=== PATIENT | female | born 1955 | race Caucasian/White ===

== ENCOUNTER → 2023-12-04 11:58 | Outpatient (CLI) | payer MEDICARE, OTHER, SELFPAY ==
[2023-12-04 12:56] LABS: Add Manual Diff / Slide Review NO; Basophils Absolute Auto 0 /uL (0-100); Basophils Percent Auto 0.7 % (0-2); Eosinophils Absolute Auto 900 /uL (0-450); Eosinophils Percent Auto 17.7 % (2-4); Hematocrit 36.5 % (36-46); Hemoglobin 12.2 g/dL (12.0-16.0); Lymphocytes Absolute Auto 1700 /uL (1100-4500); Lymphocytes Percent Auto 34.5 % (25-40); Mean Corpuscular HGB Conc 33.5 % (30-36); Mean Corpuscular Hemoglobin 29.1 PG (26-34); Monocytes Absolute Auto 400 /uL (0-900); Monocytes Percent Auto 7.9 % (3-14); Neutrophils Absolute Auto 1900 /uL (1500-7000); Neutrophils Percent Auto 39.2 % (50-75); Platelet Count 314 X10^3/uL (150-400); Red Cell Distribution Width 14.5 % (11.6-14.8); White Blood Cell Count 4.9 X10^3/uL (4.5-11.0)
[2023-12-04 13:27] LABS: Erythrocyte Sedimentation Rate 7 MM/HR (0-20)
[2023-12-04 20:32] LABS: Alanine Aminotransferase 23 IU/L (<35); Albumin 4.3 g/dL (3.5-5.0); Albumin Globulin Ratio 1.7 (1.0-2.8); Alkaline Phosphatase 50 U/L (38-126); Aspartate Aminotransferase 37 IU/L (14-36); BUN Creatinine Ratio 25.4 (6-22); Bilirubin Total 0.6 mg/dL (0.2-1.3); Blood Urea Nitrogen 16 mg/dL (7-17); C-Reactive Protein Quant < 0.5 mg/dL (<1.0); Calcium 8.8 mg/dL (8.4-10.2); Carbon Dioxide 24 mmol/L (22-32); Chloride 108 mmol/L (98-107); Estimated Glomerular Filt Rate > 60 mL/min (>60); Globulin 2.5 g/dL (1.7-4.1); Glucose 84 mg/dL (80-110); HEMOLYSIS < 15 (0-50); Potassium 3.9 mmol/L (3.4-5.1); Sodium 136 mmol/L (137-145); Total Protein 6.8 g/dL (6.3-8.2)
[2023-12-04 20:34] LABS: Rheumatoid Factor < 8.6 IU/mL (<12.0)
[2023-12-11 21:50] LABS: 1,25-Dihydroxy, Vitamin D-2 <10 pg/mL (.)
== END ==
PROVIDERS: Family Provider Specialist; PCP Family Medicine; Referring Provider Family Medicine; Visit Provider Family Medicine
DX: Z13.220 Encounter for screening for lipoid disorders (principal); M25.50 Pain in unspecified joint; M19.90 Unspecified osteoarthritis, unspecified site; M81.0 Age-related osteoporosis without current pathological fracture; G43.909 Migraine, unspecified, not intractable, without status migrainosus
CPT/HCPCS: 36415; 80053; 82652; 85025; 85651; 86140; 86430

== ENCOUNTER → 2023-12-25 14:08 | Outpatient (CLI) | payer MEDICARE, OTHER, SELFPAY ==
--- NOTE | 2023-12-25 14:10 | DI.RAD.S_ITS ---
PROCEDURE: XR SHOULDER RT MIN 2V INDICATIONS: RIGHT SHOULDER PAIN TECHNIQUE: 3 views of the shoulder were acquired. COMPARISON: None. FINDINGS: Bones: No fractures or dislocations. Mild degenerative changes present at the acromioclavicular and inferior glenohumeral joint including joint space narrowing and collar osteophytes. No suspicious bony lesions. Visualized ribs appear intact. Soft tissues: No suspicious soft tissue calcifications. IMPRESSION: No acute bony abnormality. Mild degenerative change. Dictated by: Rula Barksdale M.D. on 12/25/2023 at 16:54 Approved by: Rula Barksdale M.D. on 12/25/2023 at 16:54
--- NOTE | 2023-12-25 14:10 | DI.RAD.S_ITS ---
PROCEDURE: XR CERVICAL SPINE 4V OR 5V INDICATIONS: NECK PAIN TECHNIQUE: 5 views of the cervical spine acquired. COMPARISON: None. FINDINGS: Bones: No acute fracture or dislocation. Degenerative changes are present throughout the cervical spine most severe at C5-6 and C6-7. There is also trace anterolisthesis at C3-4. Focal kyphosis is centered at C5-6. No compression deformities. Mild foraminal stenosis is present on the left at C3-4, C5-6, and C6-7. Mild foraminal stenosis is present on the right at C5-6 and C6-7. Soft tissues: No prevertebral soft tissue swelling. IMPRESSION: 1. 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 2. Mild foraminal stenosis as above. Dictated by: Rula Barksdale M.D. on 12/25/2023 at 16:20 Approved by: Rula Barksdale M.D. on 12/25/2023 at 16:33
== END ==
PROVIDERS: Family Provider Specialist; PCP Family Medicine; Referring Provider Anesthesiology; Visit Provider Anesthesiology
DX: M47.22 Other spondylosis with radiculopathy, cervical region (principal); M48.02 Spinal stenosis, cervical region; M40.202 Unspecified kyphosis, cervical region; M19.011 Primary osteoarthritis, right shoulder; M25.511 Pain in right shoulder; M54.2 Cervicalgia; G89.29 Other chronic pain
CPT/HCPCS: 72050; 73030; 99214

== ENCOUNTER → 2024-01-01 12:11 | Outpatient (CLI) | payer MEDICARE, OTHER, SELFPAY ==
--- NOTE | 2024-01-01 12:12 | DI.MRI.S_ITS ---
PROCEDURE: MR CERVICAL SPINE WO CON INDICATIONS: Cervical radiculopathy, neck and right upper extremity pain TECHNIQUE: Noncontrast sagittal T1 spin echo and T2 fast spin echo, sagittal STIR, foraminal oblique sagittal T2 fast spin echo, and axial gradient echo or T2 fast spin echo through the cervical spine. COMPARISON: None. FINDINGS: Image quality: Excellent. Alignment and Curvature: Reversal the normal cervical lordosis. Grade 1 anterolisthesis of C3 on C4 and C4 on C5. Bone Marrow: Marrow demonstrates normal overall signal. Spinal Cord: Visualized spinal cord has normal size and signal. No cerebellar tonsillar herniation. Paraspinous Soft Tissues: No paravertebral masses. Prevertebral soft tissues are normal in thickness. C2-C3: Normal appearance. C3-C4: Disc desiccation and mild posterior disc osteophyte complex. No central canal stenosis. Facet and uncovertebral arthropathy. Moderate left and mild right neural foraminal stenosis. C4-C5: Disc desiccation and mild posterior disc osteophyte complex. No central canal stenosis. No neural foraminal stenosis. C5-C6: Disc desiccation and height loss. Mild posterior disc osteophyte complex. Facet and uncovertebral arthropathy. Mild right and no left neural foraminal stenosis. C6-C7: Disc desiccation and height loss. Mild posterior disc osteophyte complex. No significant central canal stenosis. Facet and uncovertebral arthropathy. Severe left and moderate right neural foraminal stenosis. C7-T1: No central canal stenosis. Mild left and no right neural foraminal stenosis. IMPRESSION: 1. Multilevel degenerative changes of the cervical spine as described above. 2. No significant central canal stenosis. 3. Severe left neural foraminal stenosis at C6-C7. Moderate neural foraminal stenosis on the left at C3-C4 and right at C6-C7. Dictated by: Yogesh Uribe M.D. on 01/01/2024 at 14:09 Approved by: Yogesh Uribe M.D. on 01/01/2024 at 14:12
== END ==
PROVIDERS: Family Provider Specialist; PCP Family Medicine; Referring Provider Anesthesiology; Visit Provider Anesthesiology
DX: M48.02 Spinal stenosis, cervical region; M47.22 Other spondylosis with radiculopathy, cervical region; M54.2 Cervicalgia
CPT/HCPCS: 72141

== ENCOUNTER → 2024-04-08 15:05 | Outpatient (CLI) | payer MEDICARE, OTHER, SELFPAY ==
--- NOTE | 2024-04-08 15:07 | DI.RAD.S_ITS ---
PROCEDURE: XR DEXA AXIAL SKELETON INDICATIONS: Osteoporosis screening COMPARISON: None. FINDINGS: Lumbar Spine (L2 and L3 excluded due to increased density): Bone mineral density 0.913 g/cm2, T score -1.1, osteopenia. Left Hip: Bone mineral density 0.692 g/cm2, T score -2.0, osteopenia. Left Femoral Neck: Bone mineral density 0.565 g/cm2, T score -2.6, osteoporosis. Right Hip: Bone mineral density 0.734 g/cm2, T score -1.7, osteopenia. Right Femoral Neck: Bone mineral density 0.586 g/cm2, T score -2.4, osteopenia. Fracture Risk Calculation (when applicable): Not reported due to osteoporosis diagnosis. (T score greater or equal to -1.0 to: NORMAL) (T score from -1.1 to -2.4: OSTEOPENIA) (T score less than or equal to -2.5: OSTEOPOROSIS) IMPRESSION: Osteoporosis. Follow-up guidelines as follows: Osteoporosis: Consider a repeat DEXA and Vertebral Fracture Assessment (VFA) exam in 2 years or sooner if medically necessary, to reassess this patient's status. Osteopenia: Consider a repeat DEXA in 2-3 years to reassess this patient's status, or if there is a new clinical indication. Normal: Consider a repeat DEXA in 5 years or sooner, or if there is a new clinical indication. All treatment decisions require clinical judgment and consideration of individual patient factors, including patient preferences, comorbidities, previous drug use, risk factors not captured in the FRAX model (e.g., frailty, falls, vitamin D deficiency, increased bone turnover, interval significant decline in bone density ) and possible under- or over-estimation of fracture risk by FRAX. In addition, the NOF Guide recommends that FDA-approved medical therapies be considered in postmenopausal women and men age >= 50 years with a: * Hip or vertebral (clinical or morphometric) fracture * T-score of <=-2.5 at the spine or hip * Ten-year fracture probability by FRAX of >= 3% for hip fracture or >=20% for major osteoporotic fracture. People with diagnosed cases of osteoporosis or at high risk for fracture should have regular bone mineral density tests. For patients eligible for Medicare, routine testing is allowed once every 2 years. The testing frequency can be increased to one year for patients who have rapidly progressing disease, those who are receiving or discontinuing medical therapy to restore bone mass, or have additional risk factors. Dictated by: Tl Feliciano M.D. on 04/08/2024 at 16:18 Approved by: Tl Feliciano M.D. on 04/08/2024 at 16:19
--- NOTE | 2024-04-08 15:07 | DI.MG.S_ITS ---
BILATERAL DIGITAL SCREENING MAMMOGRAM 3D/2D WITH CAD: 04/08/2024 CLINICAL: Routine screening. Comparison is made to exams dated: 05/10/2023 mammogram, 02/10/2021 mammogram, and 01/30/2020 mammogram - out side. There are scattered areas of fibroglandular density (category b / 25%-50% glandular tissue). Current study was also evaluated with a Computer Aided Detection (CAD) system. No significant masses, calcifications, or other findings are seen in either breast. There has been no significant interval change. IMPRESSION: NEGATIVE There is no mammographic evidence of malignancy. A 1 year screening mammogram is recommended. Based on the Tyrer Cuzick model (a risk assessment model) the patient's lifetime risk is 4.7% and her 10 year risk is 2.8%. According to the ACR, ACS, and NCCN guidelines, an annual breast MRI exam along with mammogram is recommended if the patient's lifetime risk is 20% or greater. This exam was interpreted at Station ID: [id number]. NOTE: For mammograms, a report in lay terms will be sent to the patient. Approximately 15% of breast malignancies will not be visualized mammographically. In the management of a palpable breast mass, a negative mammogram must not discourage biopsy of a clinically suspicious lesion. Electronically Signed By: Augusto dunbar/jeannette:04/09/2024 11:18:49 letter sent: Normal Exam ACR BI-RADS Category 1: Negative [id number]
== END ==
PROVIDERS: Family Provider Specialist; PCP Family Medicine; Referring Provider Family Medicine; Visit Provider Family Medicine
DX: M81.0 Age-related osteoporosis without current pathological fracture (principal); Z12.31 Encounter for screening mammogram for malignant neoplasm of breast
CPT/HCPCS: 77063; 77067; 77080

== ENCOUNTER → 2024-09-21 13:07 | Outpatient (CLI) | payer MEDICARE, OTHER, SELFPAY ==
--- NOTE | 2024-09-21 13:09 | DI.RAD.S_ITS ---
PROCEDURE: XR FOOT LT MIN 3V INDICATIONS: Left foot pain TECHNIQUE: 3 views of the foot were acquired. COMPARISON: None. FINDINGS: Bones: Ankle arthroplasty in appropriate position. No evidence of hardware failure loosening. Generalized decreased osseous mineralization noted. Soft tissues: No tibiotalar joint effusion. Achilles tendon appears normal. IMPRESSION: Ankle arthroplasty in good position Approved by: Sanford Love M.D. on 09/21/2024 at 12:59
== END ==
PROVIDERS: Family Provider Specialist; PCP Family Medicine; Referring Provider Physician Assistant Surgical; Visit Provider Physician Assistant Surgical
DX: M79.672 Pain in left foot (principal)
CPT/HCPCS: 73630

== ENCOUNTER → 2025-05-08 10:19 | Outpatient (CLI) | payer MEDICARE, OTHER, SELFPAY ==
[2025-05-08 10:49] LABS: Add Manual Diff / Slide Review NO; Hematocrit 37.8 % (36-46); Hemoglobin 12.5 g/dL (12.0-16.0); Lymphocytes Absolute Auto 1700 /uL (1100-4500); Mean Corpuscular HGB Conc 33.1 % (30-36); Mean Corpuscular Hemoglobin 28.5 PG (26-34); Mean Corpuscular Volume 86.3 fL (80-100); Platelet Count 311 X10^3/uL (150-400)
[2025-05-08 11:28] LABS: Alanine Aminotransferase 20 IU/L (<35); Albumin 4.2 g/dL (3.5-5.0); Albumin Globulin Ratio 1.7 (1.0-2.8); Alkaline Phosphatase 62 U/L (38-126); Blood Urea Nitrogen 18 mg/dL (7-17); Calcium 9.1 mg/dL (8.4-10.2); Carbon Dioxide 26 mmol/L (22-32); Chloride 102 mmol/L (98-107); Cholesterol 176 mg/dL (140-199); Estimated Glomerular Filt Rate > 60 mL/min (>60); Globulin 2.5 g/dL (1.7-4.1); Glucose 87 mg/dL (70-99); HDL Cholesterol 82 mg/dL (40-60); HEMOLYSIS 31 (0-50); Potassium 4.4 mmol/L (3.4-5.1); Sodium 136 mmol/L (137-145); Total Protein 6.7 g/dL (6.3-8.2); Triglycerides 89 mg/dL (35-150)
[2025-05-08 11:43] LABS: Vitamin D 25 Hydroxy (D3) 19.9 ng/mL (30.0-100.0)
[2025-05-08 11:57] LABS: TSH w/ Reflex to FT4 1.13 uIU/mL (0.47-4.68)
== END ==
PROVIDERS: Family Provider Specialist; PCP Family Medicine; Referring Provider Family Medicine; Visit Provider Family Medicine
DX: K64.4 Residual hemorrhoidal skin tags (principal); K64.8 Other hemorrhoids; K57.30 Diverticulosis of large intestine without perforation or abscess without bleeding; Z78.0 Asymptomatic menopausal state; R42 Dizziness and giddiness; Z13.220 Encounter for screening for lipoid disorders
CPT/HCPCS: 36415; 80053; 80061; 82306; 84443; 85025